=== PATIENT | male | born 1965 | race Caucasian/White ===

== ENCOUNTER 2018-09-03 20:17 | Observation (INO) | payer OTHER, SELFPAY ==
[2018-09-03 20:19] VITALS: BP 166/91; PULSE 62; RESP 18; TEMP 36.7; O2SAT 98; BMI 29.0
--- NOTE | 2018-09-03 20:47 | ED.VISSUMM ---
- ER Visit Summary Date of Service: 09/03/18 Chief Complaint: Vertigo History of Present Illness: The patient is a 52 M presenting with vertigo. Patient states this started around 5 PM. He states every time he turns his head he has a spinning sensation and he vomits. He states he had this 1 time in the past 10 years ago. He complains of mild headache. This is not the worst headache of his life. Denies numbness or weakness. Denies vision or speech changes. He denies other complaints. Physical Examination: Vitals are stable. Patient is afebrile. Alert no acute distress. HEENT exam is unremarkable. Horizontal nystagmus with extraocular motion Neck is supple. Lungs are clear and equal bilaterally. Heart is regular rate and rhythm. Abdomen is soft nontender nondistended. Extremities are unremarkable. Skin is warm and dry. No focal neurologic deficit. Remainder of exam is unremarkable. Emergency Department Course and Treatment: Patient was given IV fluids, Phenergan, meclizine. CBC, chemistries unremarkable other than white count 12.2, glucose 197. CT head shows no acute process. Patient continues to have vertigo symptoms and was given Valium. He vomited after Valium and is requesting additional dose. He was given 1 additional dose of Valium p.o. Patient will be observed in the ED. He will be checked out to the oncoming physician for reevaluation. Disposition: Pending Impression: Positional vertigo, nausea and vomiting This note was generated with [employer] ([employer] dictation software. It may contain incorrect words, spelling, and punctuation that were not noted in review of the chart prior to signing ED Disposition - Plan for ED Patient: Instructions: Benign Positional Vertigo Prescriptions: proMETHazine tablet [Phenergan] 25 mg PO Q6H PRN PRN #10 tab PRN Reason: Nausea Prescription Printed Referrals: Olu Shearer MD [STAFF PHYSICIAN] - Dylan Saenz MD [STAFF PHYSICIAN] -
[2018-09-03] MEDS: 0.9% Normal Saline 1,000 ML 1000 ML IV (20:48)
[2018-09-03] MEDS: proMETHazine 25 MG/ML Syringe 6.25 MG IV (20:48)
[2018-09-03 21:07] LABS: Absolute Lymphocyte Count 2.04 X10^3/uL (0.83-4.51); Absolute Neutrophil Count 9.2 X10^3/uL (2.0-7.7); Basophil# 0.06 X10^3/uL; Basophil% 0.5 % (0-1); Eosinophil# 0.07 X10^3/uL; Eosinophils% 0.6 % (0-5); Hematocrit 47.2 % (40-54); Hemoglobin 16.5 g/dL (13.0-16.5); Lymphocyte # 2.04 X10^3/ul (4.0); Lymphocyte % 16.7 % (19-41); Mean Corpuscular Hgb 30.6 pg (27.0-32.0); Mean Corpuscular Volume 87.4 fL (80-94); Mean Platelet Vol. 10.3 fl (6.2-12.0); Monocyte# 0.72 X10^3/uL; Monocyte% 5.9 % (0-10); NRBC Flagged by Analyzer 0 % (0-5); Neutrophil # 9.22 X10^3/uL (2.7-7.7); Neutrophil % 75.7 % (47-70); Platelet Count 187 K/mm3 (150-450); RBC Distribution Width CV 13.2 % (11.6-14.6); RBC Distribution Width SD 42.2 fl (35.1-43.9); White Blood Count 12.2 K/mm3 (4.4-11.0)
[2018-09-03] MEDS: Meclizine HCl 25 MG Tablet PO (21:09)
[2018-09-03 21:18] LABS: Anion Gap 5 (5-15); BUN 15 mg/dL (7-18); BUN/Creat Ratio 12.7 RATIO (10-20); Calcium,Total 9.5 mg/dL (8.5-10.1); Chloride 103 mmol/L (98-107); Creatinine, Serum 1.18 mg/dL (0.70-1.30); EST Glomerular Filtration Rate 68 mL/min (>60); Est Glom Filt Rate - Afr Amer 83 mL/min (>60); Estimated Creatinine Clearance 65.33 ml/min; Glucose 197 mg/dL (74-106); Potassium 3.8 mmol/L (3.5-5.1); Sodium Level 135 mmol/L (136-145)
--- NOTE | 2018-09-03 21:35 | CT_ITS ---
STUDY: CT BRAIN WITHOUT CONTRAST REASON FOR EXAM: Male, 52 years old. Ago. RADIATION DOSAGE (If Supplied By Facility): CTDIvol = ( 44.99 ) mGy, DLP = ( 796.11 ) mGycm TECHNIQUE: Transaxial CT imaging of the brain was performed without administration of intravenous contrast material. Individualized dose optimization techniques were used for this CT. COMPARISON: No relevant priors. FINDINGS: Normal soft tissue structures. Normal calvarium. Normal size ventricles and extra-axial spaces for the patient's age. Normal white matter tracts of the cerebral hemispheres. Normal basal ganglia and thalami. Normal brainstem. Normal cerebellum. There is no intracranial hemorrhage. There are no findings of an acute ischemic infarction. Mild mucosal thickening in the right maxillary sinus. CT/Brain/Head without Contrast IMPRESSION: 1. No acute findings. 2. Trace chronic sinusitis. Electronically Signed: Magaly Washington MD at 22:50 EDT Tel , Service support ,
[2018-09-03] MEDS: diazePAM 5 MG Tablet PO (21:39)
[2018-09-03 22:18] VITALS: PULSE 63; RESP 16; O2SAT 94
--- NOTE | 2018-09-03 22:43 | ED.RN ---
PT REPORTS STILL FEELING NAUSEOUS. DR. JOSESITO ANGEL.
[2018-09-03] MEDS: diazePAM 5 MG Tablet 2.5 MG PO (23:08)
--- NOTE | 2018-09-03 23:52 | ED.DEP ---
ED Disposition - Plan for ED Patient: Instructions: Benign Positional Vertigo Prescriptions: proMETHazine tablet [Phenergan] 25 mg PO Q6H PRN PRN #10 tablet PRN Reason: Nausea Referrals: Olu Shearer MD [STAFF PHYSICIAN] - Dylan Saenz MD [STAFF PHYSICIAN] -
[2018-09-04] VITALS (11 sets, daily range): BP systolic 137–168; BP diastolic 71–95; PULSE 61–78; RESP 16–17; TEMP 36.6–36.8; O2SAT 94–96; BMI 28.3
--- NOTE | 2018-09-04 00:18 | NURSING ---
[facility] NOW AND CANNOT GET ANYONE TO ANSWER
--- NOTE | 2018-09-04 00:39 | NURSING ---
[facility]ALK[facility] AND WAS TOLD [facility] ARE NOT TAKING ANY TRANSFERS BUT I AM FAXING A FACE SHEET TO THEIR [facility] TO REVIEW IN THE MORNING
--- NOTE | 2018-09-04 00:54 | PCM.HP.STD ---
Problem List (1) Vertigo Status: Acute History of Present Illness Date of Admission: 09/04/18 Chief Complaint: vertigo The patient is a 52 year old M with a significant medical history of vertigo who presented with vertigo that started on the day before his presentation. Per patient he was standing at a kitchen and he felt the environment spinning. He reported that his previous episodes of vertigo has not been associated with position but this time around he felt that his vertigo is associated with position. The patient has a history of vertigo and has had many evaluation including evaluation by ENT; and has gone through vestibular rehab. He reported that he got relief from vestibular rehab. Previous episodes of vertigo has not has been severe as this episode except that about 10 years ago he had a similar episode of severe vertigo. Patient follows up at the [facility]. His thinks that the patient had an MRI about 18 months ago because of vertigo. Associated with symptoms is nausea; vomiting and abdominal upset. He has chronic tinnitus. He denies any recent history of upper respiratory infection. His reported that previously they thought patient had BPPV. However the test for BPPV was unremarkable. At the emergency department patient received meclizine; Zofran; diazepam and Phenergan. However because remained symptomatic so he was admitted. Past Medical History Medical History: Medical History (Last Reviewed 09/04/18 @ 03:20 by Yvon Dockery MD) Vertigo R42 Allergies No Known Allergies Allergy (Verified 09/03/18 20:21) Home Medications: Ambulatory Orders Medication Instructions Recorded Fish Oil/Dha/Epa [Fish Oil 1,200 1 ea PO DAILY 09/04/18 mg Fish Oil] Surgical History: - - L5-S1 herniated disc surgery; bilateral carpal tunnel surgery; bilateral knee arthroscopy. Lives: Spouse/ Significant Other Smoking Status: Never smoker Alcohol: Occasional - Drinks 3-4 beers on weekends - *Family History Maternal History Items: Diabetes, Hypertension, - - Vertigo. His sisters and brothers had COPD; rheumatoid arthritis and diabetes. Paternal History Items: - - His father had a massive LA. Review of Systems Constitutional: Denies: Chills, Fever, Weight Change HEENT: Denies: Head Aches, Sinus Congestion, Sinus Drainage Cardiovascular: Denies: Chest Pain, Palpitations Respiratory: Denies: Cough, Sputum production Gastrointestinal: Reports: Nausea, Vomiting Genitourinary: Denies: Dysuria Musculoskeletal: Denies: Joint Pain, Joint Tenderness Skin: Denies: Rash, Wounds Neurological: Denies: Numbness, Tingling, Focal weakness Psychiatric: Denies: Anxiety, Depression, Homicidal Ideations, Suicidal Ideations Hematologic/ Lymphatic: Denies: Easy Bruising, Easy Bleeding VTE Information - Inpt Only VTE Present on Admission: No VTE Mechan Device Prophylaxis: None VTE Pharm Prophylaxis ordered?: Yes Patient Problems: Active and Suspected Problems (Last Updated 09/04/18 @ 01:34 by Yvon Dockery MD) Vertigo (Acute) - Physical Exam General: Alert, Oriented x3, Cooperative HEENT: Atraumatic, PERRLA, EOMI, Normocephalic, TM's Clear - But with wax in bilateral ears; right more than left. Neck: Supple, No JVD, Negative Carotid Bruits Lungs: Clear to auscultation, Normal air movement Cardiovascular: Regular rate, No murmurs Abdomen: Bowel Sounds Present, Soft, Non Tender Extremities: No edema, Capillary Refill Less than 3 Seconds Skin: No rashes, No breakdown Musculoskeletal: No Tenderness to Palpation of Joints or Extremities Neurological: Cranial nerves II-XII grossly intact, Muscle tone normal, - - Armando-Hallpike maneuver to the right elicited severe vertigo with nausea and profuse vomiting. Patient closes his eyes most of the time. But when his eyes was open briefly mild nystagmus was noted. Psych/Mental Status: Normal Affect, Appropriate Vital Signs Temp Pulse Resp BP Pulse Ox 98.0 F 73 16 168/71 H 94 09/03/18 20:19 09/04/18 00:00 09/04/18 00:00 09/04/18 00:00 09/04/18 00:00 Oxygen Delivery Method Room Air Weight: 81.647 kg Body Mass Index (BMI) 29.0 Laboratory Tests Past 24 Hrs 09/03/18 09/03/18 20:35 20:35 WBC 12.2 H RBC 5.40 Hgb 16.5 Hct 47.2 MCV 87.4 MCH 30.6 MCHC 35.0 RDW Std Deviation 42.2 RDW Coeff of Mac 13.2 Plt Count 187 MPV 10.3 Immature Gran % (Auto) 0.600 Neut % (Auto) 75.7 H Lymph % (Auto) 16.7 L [place] % (Auto) 5.9 Eos % (Auto) 0.6 Baso % (Auto) 0.5 Absolute Neuts (auto) 9.2 H Absolute Lymphs (auto) 2.04 Absolute Nucleated RBC 0.00 Nucleated RBC % 0 Sodium 135 L Potassium 3.8 Chloride 103 Carbon Dioxide 27.0 Anion Gap 5 BUN 15 Creatinine 1.18 Estim Creat Clear Calc 65.33 Est GFR (MDRD) Af Amer 83 Est GFR (MDRD) Non-Af 68 BUN/Creatinine Ratio 12.7 Glucose 197 H Calcium 9.5 Assessment/Plan All Active Problems (Last Updated 09/04/18 @ 01:34 by Yvon Dockery MD) Vertigo (Acute) The patient is a 52 year old M with a significant medical history of vertigo who presented with severe vertigo. Vertigo Patient reported he has had previous episodes of multiple vertigo and has been evaluated at the [facility]; making a posterior circulation stroke less likely than peripheral source of vertigo. However we will do frequent [facility] due to severity of his symptoms.. We will continue symptomatic treatment [facility] If his vertigo persist consider repeat imaging. His CT of the head at the emergency department was unremarkable. CT brain was independently reviewed. I agree with radiologist interpretation. Schedule meclizine 3 times daily Valium 2.5 mg PO Q8H PRN. If vertigo persists recommend escalating regimen. Zofran IV as needed; and Phenergan IM as needed ordered. Patient noted to have profuse bilious vomiting. We will keep n.p.o. for now. Supportive treatment with lactated Ringer's. Vestibular rehab to be started inpatient; and possibly continuing outpatient. Acute hyperglycemia On presentation his blood glucose was 197. Will check hemoglobin A1c. NPO for now; doubt whether accu-chek blood sugar will be elevated Elevated blood pressure noted without diagnosis of hypertension. On presentation his blood pressure was not within goal. However since TIA/CVA is on the differential, although less likely, will allow permissive hypertension DVT prophylaxis Subcutaneous Lovenox Code Visit OBSV E&M: 17600 Initial observation care L3
--- NOTE | 2018-09-04 01:56 | NURSING ---
Report called to [facility].
[2018-09-04] MEDS: Lactated Ringers 1,000 ML 100 ML IV (02:49)
[2018-09-04] MEDS: Ondansetron 4 MG/2 ML Vial IV ×2 (03:32→13:46)
[2018-09-04 05:19] LABS: Absolute Lymphocyte Count 1.36 X10^3/uL (0.83-4.51); Absolute Neutrophil Count 7.2 X10^3/uL (2.0-7.7); Basophil# 0.01 X10^3/uL; Basophil% 0.1 % (0-1); Eosinophil# 0.01 X10^3/uL; Eosinophils% 0.1 % (0-5); Hematocrit 45.7 % (40-54); Hemoglobin 16.1 g/dL (13.0-16.5); Lymphocyte # 1.36 X10^3/ul (4.0); Lymphocyte % 14.8 % (19-41); Mean Corp Hgb Conc 35.2 g/dL (32-36); Mean Corpuscular Volume 88.1 fL (80-94); Mean Platelet Vol. 9.9 fl (6.2-12.0); Monocyte% 6.5 % (0-10); NRBC Flagged by Analyzer 0 % (0-5); Neutrophil % 78.1 % (47-70); Platelet Count 190 K/mm3 (150-450); RBC Distribution Width CV 13.2 % (11.6-14.6); RBC Distribution Width SD 42.8 fl (35.1-43.9); Red Blood Count 5.19 M/mm3 (4.6-6.2); White Blood Count 9.2 K/mm3 (4.4-11.0)
[2018-09-04 05:46] LABS: Anion Gap 10 (5-15); BUN 13 mg/dL (7-18); BUN/Creat Ratio 12.9 RATIO (10-20); Chloride 105 mmol/L (98-107); Creatinine, Serum 1.01 mg/dL (0.70-1.30); EST Glomerular Filtration Rate 82 mL/min (>60); Est Glom Filt Rate - Afr Amer 99 mL/min (>60); Estimated Creatinine Clearance 76.33 ml/min; Glucose 125 mg/dL (74-106); Potassium 4.3 mmol/L (3.5-5.1); Sodium Level 141 mmol/L (136-145)
[2018-09-04 05:50] LABS: Hemoglobin A1c 5.9 % (4.2-6.3)
[2018-09-04] MEDS: 0.9% NaCl Peripheral Flush Adult/Peds IV ×2 (06:18→10:41)
[2018-09-04] MEDS: Meclizine HCl 25 MG Tablet PO ×2 (10:20→15:16)
[2018-09-04] MEDS: Enoxaparin 40 MG/0.4 ML Syringe SC (10:22)
[2018-09-04] MEDS: proMETHazine 25 MG/ML Syringe 12.5 MG IV (10:39)
[2018-09-04] MEDS: Acetaminophen 325 MG Tablet 650 MG PO (10:39)
--- NOTE | 2018-09-04 14:22 | CASEMGMT ---
[facility]. Sandra REYEZ CM
--- NOTE | 2018-09-04 15:02 | DCINST_ITS ---
- Discharge Diagnoses Current Active Problems: Current Active and Chronic Problems (Last Reviewed 09/04/18 @ 03:20 by Yvon Dockery MD) Vertigo (Acute) You will use the following diet at home:: No restrictions Discharge Activity: - - May not drive while using as needed Valium or while vertigo symptoms are persistent. Call your doctor if you observe: Numbness or Tingling, Shortness of breath, Dizziness Instructions: Benign Positional Vertigo Additional Instructions: Recommend follow-up with ENT or outpatient physical therapy if vertigo symptoms are persistent. Allergies/Adverse Reactions: Allergies No Known Allergies Allergy (Verified 09/03/18 20:21) Medications to take at Discharge Diazepam [Valium] 2.5 mg PO Q8H PRN #15 tablet 09/04/18 Fish Oil/Dha/Epa [Fish Oil 1,200 mg Fish Oil] 1 ea PO DAILY 09/04/18 Meclizine HCl [Antivert] 25 mg PO TID #30 tab 09/04/18 Ondansetron HCl [Zofran] 4 mg PO Q8H PRN #20 tab 09/04/18 The following prescriptions were given: Meclizine HCl [Antivert] 25 mg PO TID #30 tab Transmission Status: Pending to [address] Diazepam [Valium] 2.5 mg PO Q8H PRN #15 tablet PRN Reason: Vertigo Transmission Status: Received by [address] Ondansetron HCl [Zofran] 4 mg PO Q8H PRN #20 tab PRN Reason: Nausea Transmission Status: Pending to [address] Primary Care Physician: Olu Shearer MD [STAFF PHYSICIAN] - Dylan Saenz MD [STAFF PHYSICIAN] - Please follow up with your Primary Care Physician in: 1 Week Test Results: Test results from this visit will be discussed in further detail at your follow- up appointment, if applicable. Proposed Discharge Date: 09/04/18
--- NOTE | 2018-09-04 15:05 | DS.PCM_ITS ---
<Jolie Wallace - Last Filed: 09/04/18 15:16> Discharge Date and Diagnosis Date of Admission: 09/04/18 Date of Discharge: 09/04/18 - Primary Discharge Diagnosis Active and Suspected Problems (Last Reviewed 09/04/18 @ 03:20 by Yvon Dockery MD) 1. Acute vertigo, BPPV 2. Elevated blood pressure without history of hypertension 3. Elevated glucose, stress response Hospital Course and Treatment Imaging Results: Diagnostic Data Brain CT 09/03/18 21:35 IMPRESSION: 1. No acute findings. 2. Trace chronic sinusitis. Electronically Signed: Magaly Washington MD at 22:50 EDT Tel , Service support , Operations: None Procedures: None Summary of Care Provided: The patient is a 52 year old M admitted 09/04/2018 due to vertigo. 1. Acute vertigo, BPPV-brain CT on admission shows no acute findings, trace chronic sinusitis. Patient without focal deficits, vision changes or unilateral weakness. He has a history of vertigo, approximately 10 years ago. Symptoms improved with as needed Valium, scheduled meclizine. PT evaluated during admi ssion and performed Mercedez maneuver/vestibular therapy. Patient ambulating without difficulty and requesting to return home. Recommend continued outpatient PT with vestibular therapy if patient is agreeable. Discharge on as needed Zofran, Valium and meclizine. Follow-up with ENT if symptoms are persistent. [facility] which showed few, tiny scattered white matter hyperintense lesions due to microvascular ischemia. Otherwise no acute process. Follow-up with primary care provider in 1 week. 2. Elevated blood pressure without history of hypertension-blood pressure fluc tuating during admission, systolically 130-150. Recommend further outpatient monitoring and addition of antihypertensive if blood pressure remains above goal. Follow-up with primary care provider. 3. Elevated glucose, stress response-normal hemoglobin A1c. Patient seen and examined prior to discharge. Physical assessment as noted below. Patient is stable for discharge with follow up recommendations as noted above. This patient was seen by JOSE M Gonsalez under the supervision of Dr. Walsh. - Physical Exam General: Alert, Oriented x3, Cooperative HEENT: Atraumatic, PERRLA, EOMI, Normocephalic Neck: Supple, No JVD, Negative Carotid Bruits Lungs: Clear to auscultation, Normal air movement Cardiovascular: Regular rate, Regular Rhythm, Normal S1, Normal S2, No murmurs Abdomen: Bowel Sounds Present, Soft, Non Tender, Non-Distended Extremities: No clubbing, No cyanosis, No edema, Capillary Refill Less than 3 Seconds Skin: No rashes, No breakdown Musculoskeletal: No Tenderness to Palpation of Joints or Extremities Neurological: Cranial nerves II-XII grossly intact, Neuro grossly intact Psych/Mental Status: Normal Affect, Appropriate Vital Signs Temp Pulse Resp BP Pulse Ox 98.1 F 61 17 137/91 H 95 09/04/18 13:50 09/04/18 13:50 09/04/18 13:50 09/04/18 13:50 09/04/18 13:50 Oxygen Delivery Method Room Air Weight: 175 lb 7.807 oz Body Mass Index (BMI) 28.3 Intake and Output for Last 24 Hours 09/02/18 09/03/18 09/04/18 23:59 23:59 23:59 Intake Total 625 / 625 Output Total 500 / 500 Balance 125 / 125 Laboratory Tests Past 24 Hrs 09/03/18 09/03/18 09/03/18 20:35 20:35 20:35 WBC 12.2 H RBC 5.40 Hgb 16.5 Hct 47.2 MCV 87.4 MCH 30.6 MCHC 35.0 RDW Std Deviation 42.2 RDW Coeff of Mac 13.2 Plt Count 187 MPV 10.3 Immature Gran % (Auto) 0.600 Neut % (Auto) 75.7 H Lymph % (Auto) 16.7 L [place] % (Auto) 5.9 Eos % (Auto) 0.6 Baso % (Auto) 0.5 Absolute Neuts (auto) 9.2 H Absolute Lymphs (auto) 2.04 Absolute Nucleated RBC 0.00 Nucleated RBC % 0 Sodium 135 L Potassium 3.8 Chloride 103 Carbon Dioxide 27.0 Anion Gap 5 BUN 15 Creatinine 1.18 Estim Creat Clear Calc 65.33 Est GFR (MDRD) Af Amer 83 Est GFR (MDRD) Non-Af 68 BUN/Creatinine Ratio 12.7 Glucose 197 H Hemoglobin A1c 5.9 Calcium 9.5 09/04/18 09/04/18 04:48 04:50 WBC 9.2 RBC 5.19 Hgb 16.1 Hct 45.7 MCV 88.1 MCH 31.0 MCHC 35.2 RDW Std Deviation 42.8 RDW Coeff of Mac 13.2 Plt Count 190 MPV 9.9 Immature Gran % (Auto) 0.400 Neut % (Auto) 78.1 H Lymph % (Auto) 14.8 L [place] % (Auto) 6.5 Eos % (Auto) 0.1 Baso % (Auto) 0.1 Absolute Neuts (auto) 7.2 Absolute Lymphs (auto) 1.36 Absolute Nucleated RBC 0.00 Nucleated RBC % 0 Sodium 141 Potassium 4.3 Chloride 105 Carbon Dioxide 26.0 Anion Gap 10 BUN 13 Creatinine 1.01 Estim Creat Clear Calc 76.33 Est GFR (MDRD) Af Amer 99 Est GFR (MDRD) Non-Af 82 BUN/Creatinine Ratio 12.9 Glucose 125 H Hemoglobin A1c Calcium 9.0 Discharge Diet: No Restrictions Discharge Activity: - - May not drive while using as needed Valium or while vertigo symptoms are persistent. Call your doctor if you observe: Numbness or Tingling, Shortness of breath, Dizziness Home Medications: Medications to take at Discharge Diazepam [Valium] 2.5 mg PO Q8H PRN #15 tab 09/04/18 Fish Oil/Dha/Epa [Fish Oil 1,200 mg Fish Oil] 1 ea PO DAILY 09/04/18 Meclizine HCl [Antivert] 25 mg PO TID #30 tab 09/04/18 Ondansetron HCl [Zofran] 4 mg PO Q8H PRN #20 tab 09/04/18 Following Prescrptions Were Given to Patient: Meclizine HCl [Antivert] 25 mg PO TID #30 tab Transmission Status: Received by [facility] Diazepam [Valium] 2.5 mg PO Q8H PRN #15 tab PRN Reason: Vertigo Transmission Status: Received by [facility] Ondansetron HCl [Zofran] 4 mg PO Q8H PRN #20 tab PRN Reason: Nausea Transmission Status: Received by [facility] [facility] Primary Care Physician: Olu Shearer MD [STAFF PHYSICIAN] - Dylan Saenz MD [STAFF PHYSICIAN] - Please follow up with your Primary Care Physician in: 1 Week Patient Instructions: Benign Positional Vertigo Disposition: Home Minutes spent on discharge:: 35 Patient Condition:: Stable Medical Necessity - Tobacco Use Smoking Status: Never smoker Tobacco Use: Non-smoker Meaningful Use Info Meaningful Use Diagnoses (Choose all that apply): None applicable <Kristian Walsh E - Last Filed: 09/04/18 15:27> Hospital Course and Treatment Summary of Care Provided: Hospitalist note: Discharge summary above reviewed and concur with the above discharge and treatment plan. Patient was admitted for vertigo in context of history of BPPV. CT scan brain showed no acute findings. He had no focal deficit on physical examination. During this admission, his symptoms attributed to BPPV. Patient was treated with IV fluids, Zofran, Valium and Antivert. With above-mentioned treatment, patient symptoms improved. Upon admission, his blood pressure was elevated and kept fluctuating which was attributed to acute illness. There was no indication to start patient on antihypertensive medications. His blood glucose was also elevated of up to 197. His hemoglobin A1c was 5.9. This hyperglycemia attributed to stress response. Patient discharged home in a stable medical condition, discharged on Valium as needed, meclizine as needed as well as Zofran as needed, recommended to follow-up with PCP in 1 week, monitor blood pressure, patient may need to be started on antihypertensive medications if blood pressure remains high. - Physical Exam General: Alert, Oriented x3, Cooperative, No apparent distress. HEENT: Atraumatic, PERRLA, EOMI. Neck: Supple, No JVD, Negative Carotid Bruits, Trachea Midline, Thyroid Normal. Lungs: Clear to auscultation, Normal air movement, No rhonchi, No wheeze, No rales. Cardiovascular: Regular rate, Regular Rhythm, Normal S1, Normal S2, PMI Normal. Abdomen: Bowel Sounds Present, Soft, Non Tender, Non-Distended, No Hepato- splenomegaly. Extremities: No clubbing, No cyanosis, No edema Skin: No rashes, No breakdown Neurological: Neuro grossly intact This note was generated with [employer] software. It may contain incorrect words, spelling, and punctuation that were not noted in checking the note before signing. - Physical Exam Vital Signs Temp Pulse Resp BP Pulse Ox 98.1 F 61 17 137/91 H 95 09/04/18 13:50 09/04/18 13:50 09/04/18 13:50 09/04/18 13:50 09/04/18 13:50 Oxygen Delivery Method Room Air Weight: 175 lb 7.807 oz Body Mass Index (BMI) 28.3 Intake and Output for Last 24 Hours 09/02/18 09/03/18 09/04/18 23:59 23:59 23:59 Intake Total 625 / 625 Output Total 500 / 500 Balance 125 / 125 Laboratory Tests Past 24 Hrs 09/03/18 09/03/18 09/03/18 20:35 20:35 20:35 WBC 12.2 H RBC 5.40 Hgb 16.5 Hct 47.2 MCV 87.4 MCH 30.6 MCHC 35.0 RDW Std Deviation 42.2 RDW Coeff of Mac 13.2 Plt Count 187 MPV 10.3 Immature Gran % (Auto) 0.600 Neut % (Auto) 75.7 H Lymph % (Auto) 16.7 L [place] % (Auto) 5.9 Eos % (Auto) 0.6 Baso % (Auto) 0.5 Absolute Neuts (auto) 9.2 H Absolute Lymphs (auto) 2.04 Absolute Nucleated RBC 0.00 Nucleated RBC % 0 Sodium 135 L Potassium 3.8 Chloride 103 Carbon Dioxide 27.0 Anion Gap 5 BUN 15 Creatinine 1.18 Estim Creat Clear Calc 65.33 Est GFR (MDRD) Af Amer 83 Est GFR (MDRD) Non-Af 68 BUN/Creatinine Ratio 12.7 Glucose 197 H Hemoglobin A1c 5.9 Calcium 9.5 09/04/18 09/04/18 04:48 04:50 WBC 9.2 RBC 5.19 Hgb 16.1 Hct 45.7 MCV 88.1 MCH 31.0 MCHC 35.2 RDW Std Deviation 42.8 RDW Coeff of Mac 13.2 Plt Count 190 MPV 9.9 Immature Gran % (Auto) 0.400 Neut % (Auto) 78.1 H Lymph % (Auto) 14.8 L [place] % (Auto) 6.5 Eos % (Auto) 0.1 Baso % (Auto) 0.1 Absolute Neuts (auto) 7.2 Absolute Lymphs (auto) 1.36 Absolute Nucleated RBC 0.00 Nucleated RBC % 0 Sodium 141 Potassium 4.3 Chloride 105 Carbon Dioxide 26.0 Anion Gap 10 BUN 13 Creatinine 1.01 Estim Creat Clear Calc 76.33 Est GFR (MDRD) Af Amer 99 Est GFR (MDRD) Non-Af 82 BUN/Creatinine Ratio 12.9 Glucose 125 H Hemoglobin A1c Calcium 9.0 Meaningful Use Info Meaningful Use Diagnoses (Choose all that apply): None applicable Code Visit OBSV E&M: 40338 Observation care discharge
--- NOTE | 2018-09-04 15:57 | CASEMGMT ---
Addendum entered by Annie Griffith 09/05/18 08:59: [facility] at [facility] transfer center updated on pt discharge from [facility] at this time, voices understanding. Sandra REYEZ CM Original Note: Therapy is recommending OP vestibular therapy for pt at this time. This RN CM to room to discuss with pt and pt declines order for OP vestibular at this time and states [facility] to where he works. Pt states no further questions/concerns/needs at this time. Pt awaiting dispo. Sandra REYEZ CM
== END 2018-09-04 17:45 | disposition home or self-care (01) ==
LOC: ED 09-04 00:05 → PCU 09-04 07:09 → MS3 09-05 14:58 → PCU 09-05 14:58
PROVIDERS: Emergency Medicine; Admitting Provider Hospitalist; Emergency Provider Emergency Medicine; Visit Provider Hospitalist
DX: H81.10 Benign paroxysmal vertigo, unspecified ear (principal); R03.0 Elevated blood-pressure reading, without diagnosis of hypertension; R73.9 Hyperglycemia, unspecified; H93.19 Tinnitus, unspecified ear
CPT/HCPCS: 36415; 70450; 80048; 83036; 85025; 94762; 96361; 96372; 96374; 96375; 96376; 97161; 99218; 99284; J7030; J7120; A4216; G0378; J2405